=== PATIENT | female | born 1995 | race Caucasian/White ===

== ENCOUNTER 2018-08-01 11:54 | Emergency (ER) | payer OTHER, MEDICAID, SELFPAY ==
[2018-08-01 12:11] VITALS: BP 112/73; PULSE 79; RESP 18; TEMP 36.4; O2SAT 96; BMI 39.6
[2018-08-01] MEDS: ONDANSETRON 4 MG ODT PO (12:31)
[2018-08-01 15:48] VITALS: BP 112/74; PULSE 73; TEMP 36.5; O2SAT 97
--- NOTE | 2018-08-01 16:08 | ED.EAR ---
HPI - Ear Problem <GA Guaman Last Filed: 08/01/18 22:16> General Chief complaint: Ear Stated complaint: ear ache Time Seen by Provider: 08/01/18 15:46 Source: patient Mode of arrival: ambulatory Limitations: no limitations History of Present Illness HPI Narrative: This 23-year-old female complains of right earache and is worried that this could rupture as it feels like her left eardrum did in the past prior to a rupturing. She states that about a week ago, she went camping and afterwards she had some congestion, drainage, and scratchy throat like her usual allergy symptoms. She has gradually developed sore throat (better now), left, then right and ear congestion respectively. She states that the ear pain radiates into her jaw and the ear feels plugged. She states that she has felt warm the last couple of days but has not taken her temperature. She states that she has had some cough, but no wheeze or dyspnea or exacerbation of her asthma. She denies any chest pain or other new complaints on systems review. No other known exposures Related Data Home Medications Medication Instructions Recorded Confirmed fexofenadine 180 mg PO QDAYP PRN #0 06/19/17 Previous Rx's Medication Instructions Recorded albuterol sulfate 1.25 mg INH SEE INSTRUCTIONS PRN 04/17/17 #1 box amoxicillin 500 mg PO Q8H #30 cap 09/20/17 clindamycin HCl 300 mg PO Q6H 10 Days #0 cap 09/23/17 ondansetron [Zofran ODT] 4 mg SUBLINGUAL Q6HP PRN #5 odt 09/23/17 tramadol 1 - 2 tab PO Q4HP PRN #12 tab 09/23/17 albuterol sulfate HFA 90 1 inhalation INHALATION Q4-6H PRN 04/22/18 mcg/actuation aerosol inhaler #1 inhalation amoxicillin 500 mg PO Q8H #30 cap 08/01/18 Allergies Allergy/AdvReac Type Severity Reaction Status Date / Time No Known Drug Allergies Allergy Unknown Verified 08/01/18 12:16 Review of Systems <GA Guaman Filed: 08/01/18 22:16> Review of Systems All systems reviewed & are unremarkable except as noted in HPI and below PFSH <GA Guaman Filed: 08/01/18 22:16> Comment: quit 08/06 Exam <Adwoa Wilson PA-C - Last Filed: 08/01/18 22:16> Narrative Exam Narrative: GENERAL APPEARANCE: Patient sitting comfortably, in no distress. HEAD: No sinus TTP. EYES: PERRL, EOMI. EARS: Normal auditory canals, TMS intact, mild injection on the left. Right is erythematous and bulging. ORAL CAVITY: Normal oropharynx. THROAT: Moderately enlarged, erythematous tonsils without exudate NECK/THYROID: Neck supple, full range of motion, anterior cervical lymphadenopathy. LUNGS: Clear to auscultation bilaterally, no cough on exam. HEART: RRR without murmur, nl S1, S2, no S3 or S4. EXTREMITIES: No edema or cyanosis Initial Vital Signs Initial Vital Signs: Vital Signs Temperature 97.6 F 08/01/18 12:11 Pulse Rate 79 08/01/18 12:11 Respiratory Rate 18 08/01/18 12:11 Blood Pressure 112/73 08/01/18 12:11 Pulse Oximetry 96 08/01/18 12:11 <Cecily Fournier DO - Last Filed: 08/02/18 08:14> Initial Vital Signs Initial Vital Signs: Vital Signs Temperature 97.6 F 08/01/18 12:11 Pulse Rate 79 08/01/18 12:11 Respiratory Rate 18 08/01/18 12:11 Blood Pressure 112/73 08/01/18 12:11 Pulse Oximetry 96 08/01/18 12:11 Course <Adwoa Wilsno PA-C - Last Filed: 08/01/18 22:16> Orders Ordered: Discontinued Medications Ondansetron HCl (Zofran Odt) 4 mg PO NOW ONE Stop: 08/01/18 12:21 Last Admin: 08/01/18 12:31 Dose: 4 mg Vital Signs - 8 hr 08/01/18 15:48 Temperature 97.7 F Pulse Rate 73 Blood Pressure [Left Arm] 112/74 Pulse Oximetry 97 <DO Popeye Roman Last Filed: 08/02/18 08:14> Orders Ordered: Discontinued Medications Ondansetron HCl (Zofran Odt) 4 mg PO NOW ONE Stop: 08/01/18 12:21 Last Admin: 08/01/18 12:31 Dose: 4 mg Vital Signs - 8 hr 08/01/18 15:48 Temperature 97.7 F Pulse Rate 73 Blood Pressure [Left Arm] 112/74 Pulse Oximetry 97 Discharge Plan Departure Patient Disposition: Home Clinical Impression: Otitis media Discharge Date/Time: 08/01/18 16:25 Interventions: ED Discharge Assessment Last Done: 08/01/18 16:21 Instructions: DI for Otitis Media (Middle Ear Infection)-Child Activity Restrictions/Additional Instructions: please return if you have any acutely worsening symptoms. Please see your PCP if your symptoms are not improving after you have been on the antibiotics for a few days. Please try taking pseudoephedrine (get the 1 from the pharmacist when you picker feeder your prescription) to help with your ear pressure and congestion. Also take [id number] ibuprofen or Aleve to help with pain. Continue your usual allergy and asthma medicines as well. Prescriptions: New amoxicillin 500 mg capsule 500 mg PO Q8H Qty: 30 RF: 0 No Action albuterol sulfate 1.25 MG/3 ML solution for nebulization 1.25 mg INH SEE INSTRUCTIONS PRNQty: 1 RF: 4 fexofenadine 180 MG tablet 180 mg PO QDAYP PRNQty: 0 RF: 0 amoxicillin 500 MG capsule 500 mg PO Q8H Qty: 30 RF: 0 clindamycin HCl 300 MG capsule 300 mg PO Q6H 10 Days Qty: 0 RF: 0 tramadol 50 MG tablet 1 - 2 tab PO Q4HP PRNQty: 12 RF: 0 ondansetron [Zofran ODT] 4 MG tablet,disintegrating 4 mg Sublingual Q6HP PRNQty: 5 RF: 0 albuterol sulfate [Proventil HFA] 90 mcg/actuation HFA aerosol inhaler 1 inhalation INHALATION Q4-6H PRN (Reason: shortness of breath or wheezing) Qty: 1 RF: 1 Referrals: Julián Rosenthal MD [Non-Staff] - <Cecily Fournier DO - Last Filed: 08/02/18 08:14> Cosign ED Attending Kenroyature Attestation: I was immediately available in the department for consultation. Documentation has been reviewed. I agree with assessment and plan.
== END 2018-08-01 16:25 | disposition home or self-care (01) ==
PROVIDERS: Emergency Provider Internal Medicine
DX: H66.90 Otitis media, unspecified, unspecified ear (principal)
CPT/HCPCS: 99282; 99283

== ENCOUNTER 2019-01-13 13:52 | Emergency (ER) | payer OTHER, MEDICAID, SELFPAY ==
[2019-01-13 13:55] VITALS: BP 119/78; PULSE 82; RESP 20; TEMP 36.2; O2SAT 96
[2019-01-13 14:30] LABS: Influenza A and B by PCR Rapid Negative (Negative)
--- NOTE | 2019-01-13 15:56 | PC.NURSE ---
Patient reports use of nebulizer at home with albuterol with minimal relief. COugh for three days. wet but can't get anything out and no relief with mucinex denies fever or chills.
--- NOTE | 2019-01-13 16:07 | ED.URI ---
HPI - URI/Sore Throat <Adwoa Wilson PA-C - Last Filed: 01/13/19 21:41> General Chief Complaint: Upper Respiratory Symptoms Stated Complaint: cough Time Seen by Provider: 01/13/19 15:01 Source: patient Mode of arrival: ambulatory Limitations: no limitations History of Present Illness HPI Narrative: This 23-year-old female with history of asthma comes to ED due to the increased wheeze and dyspnea for the last 3 days in the setting of new wet cough. She feels like her chest is congested but unable to produce sputum most of the time. She denies chest pain. She denies any new pain or swelling in her legs. She denies fever, chills, sweats. She denies any recent travel or known exposures. She denies any sinus pain, earache, or sore throat. She is a smoker. She states that she has tried her inhalers frequently and various types of nebulizers at home without improvement ( she states that she is unsure which nebulizer solution she is using as she got some from her mom since she does not need it frequently). Related Data Home Medications Medication Instructions Recorded Confirmed fexofenadine 180 mg PO QDAYP PRN #0 06/19/17 Previous Rx's Medication Instructions Recorded albuterol sulfate 1.25 mg INH SEE INSTRUCTIONS PRN 04/17/17 #1 box ondansetron [Zofran ODT] 4 mg SUBLINGUAL Q6HP PRN #5 odt 09/23/17 tramadol 1 - 2 tab PO Q4HP PRN #12 tab 09/23/17 albuterol sulfate HFA 90 1 inhalation INHALATION Q4-6H PRN 04/22/18 mcg/actuation aerosol inhaler #1 inhalation albuterol sulfate 2.5 mg INHALATION Q3-4H PRN #180 ml 01/13/19 ipratropium-albuterol 3 ml INHALATION BID #90 ml 01/13/19 prednisone 40 mg PO DAILY #10 tab 01/13/19 Allergies Allergy/AdvReac Type Severity Reaction Status Date / Time No Known Drug Allergies Allergy Unknown Verified 08/01/18 12:16 Review of Systems <Adwoa Wilson PA-C - Last Filed: 01/13/19 21:41> Review of Systems ROS Unobtainable: All systems reviewed & are unremarkable except as noted in HPI and below PFSH <Adwoa Wilson PA-C - Last Filed: 01/13/19 21:41> Medical History MILD PERSISTENT ASTHMA, UNCOMPLICATED (Chronic) Anemia (Chronic) Seasonal allergies (Chronic) Social History Smoking Status: Former smoker Social History Smoking Status: Current every day smoker Exam <Adwoa Wilson PA-C - Last Filed: 01/13/19 21:41> Narrative Exam Narrative: GENERAL APPEARANCE: Patient sitting comfortably, in no distress. HEAD: No sinus TTP. EYES: PERRL, EOMI. EARS: Normal auditory canals, TMS intact with normal light reflexes. ORAL CAVITY: Normal oropharynx. THROAT: Erythematous with large tonsils, no exudate NECK/THYROID: Neck supple, full range of motion, no cervical lymphadenopathy. LUNGS: generalized coarse breath sounds with some expiratory wheeze, speaks easily in complete sentences, intermittent cough on exam. HEART: RRR without murmur, nl S1, S2, no S3 or S4. EXTREMITIES: No edema or calf tenderness Initial Vital Signs Initial Vital Signs: Vital Signs Temperature 97.1 F L 01/13/19 13:55 Pulse Rate 82 01/13/19 13:55 Respiratory Rate 20 01/13/19 13:55 Blood Pressure 119/78 01/13/19 13:55 Pulse Oximetry 96 01/13/19 13:55 <Cecily Fournier DO - Last Filed: 01/16/19 09:01> Initial Vital Signs Initial Vital Signs: Vital Signs Temperature 97.1 F L 01/13/19 13:55 Pulse Rate 82 01/13/19 13:55 Respiratory Rate 20 01/13/19 13:55 Blood Pressure 119/78 01/13/19 13:55 Pulse Oximetry 96 01/13/19 13:55 Course <Adwoa Wilson PA-C - Last Filed: 01/13/19 21:41> Orders Ordered: ED Orders 01/13/19 13:58 Influenza A and B by PCR Rapid Stat Vital Signs - 8 hr 01/13/19 13:55 01/13/19 16:29 Temperature 97.1 F L Pulse Rate 82 Respiratory Rate 20 20 Blood Pressure 119/78 Pulse Oximetry 96 97 <Cecily Fournier DO - Last Filed: 01/16/19 09:01> Orders Ordered: ED Orders 01/13/19 13:58 Influenza A and B by PCR Rapid Stat Vital Signs - 8 hr 01/13/19 13:55 01/13/19 16:29 Temperature 97.1 F L Pulse Rate 82 Respiratory Rate 20 20 Blood Pressure 119/78 Pulse Oximetry 96 97 MDM - URI/Sore Throat <Adwoa Wilson PA-C - Last Filed: 01/13/19 21:41> Lab Data Lab Results 01/13/19 Range/Units 13:58 Influenza A & B (PCR) Negative (Negative) <Cecily Fournier DO - Last Filed: 01/16/19 09:01> Lab Data Lab Results 01/13/19 Range/Units 13:58 Influenza A & B (PCR) Negative (Negative) Discharge Plan Departure Patient Disposition: Home Clinical Impression: Bronchitis Asthma exacerbation Qualifiers: Asthma severity: moderate Asthma persistence: persistent Qualified Code(s): J45.41 - Moderate persistent asthma with (acute) exacerbation Discharge Date/Time: 01/13/19 16:31 Interventions: ED Discharge Assessment Last Done: 01/13/19 16:29 Instructions: DI for Asthma -- Adult, DI for Acute Bronchitis Activity Restrictions/Additional Instructions: I think that your asthma flare-up is caused by a chest cold ( bronchitis). please use the new nebulizer solution ipratropium / albuterol when you get home. Use that twice daily as it is longer acting. Follow that with albuterol twice daily and use the plain albuterol every few hours as needed in between to help with your wheeze and cough. In addition, please start the prednisone today, 2 tabs daily to help with your asthma. You should return as we talked about if you have acutely worsening symptoms, otherwise you should follow-up with your PCP in a few days (no later than Sunday) for recheck to make sure you are getting better and to determine whether you need to continue the steroids or can discontinue them on Sunday. Prescriptions: New ipratropium-albuterol 0.5 mg-3 mg(2.5 mg base)/3 mL solution for nebulization 3 ml INHALATION BID Qty: 90 RF: 0 albuterol sulfate 2.5 mg /3 mL (0.083 %) solution for nebulization 2.5 mg INHALATION Q3-4H PRN (Reason: asthma) Qty: 180 RF: 0 prednisone 20 mg tablet 40 mg PO DAILY Qty: 10 RF: 0 No Action albuterol sulfate 1.25 MG/3 ML solution for nebulization 1.25 mg INH SEE INSTRUCTIONS PRNQty: 1 RF: 4 fexofenadine 180 MG tablet 180 mg PO QDAYP PRNQty: 0 RF: 0 tramadol 50 MG tablet 1 - 2 tab PO Q4HP PRNQty: 12 RF: 0 ondansetron [Zofran ODT] 4 MG tablet,disintegrating 4 mg Sublingual Q6HP PRNQty: 5 RF: 0 albuterol sulfate [Proventil HFA] 90 mcg/actuation HFA aerosol inhaler 1 inhalation INHALATION Q4-6H PRN (Reason: shortness of breath or wheezing) Qty: 1 RF: 1 Referrals: Julián Rosenthal MD [Non-Staff] - <Cecily Fournier DO - Last Filed: 01/16/19 09:01> Cosign ED Attending Cosignature Attestation: I was immediately available in the department for consultation. Documentation has been reviewed. I agree with assessment and plan.
[2019-01-13 16:29] VITALS: RESP 20; O2SAT 97
== END 2019-01-13 16:31 | disposition home or self-care (01) ==
PROVIDERS: Emergency Provider Internal Medicine
DX: J40 Bronchitis, not specified as acute or chronic (principal); J45.41 Moderate persistent asthma with (acute) exacerbation
CPT/HCPCS: 87400; 99282; 99283

== ENCOUNTER 2022-07-30 11:31 | Emergency (ER) | payer OTHER, MEDICAID, SELFPAY ==
[2022-07-30 11:47] VITALS: BP 131/86; PULSE 77; RESP 18; TEMP 36.2; O2SAT 96; BMI 42.5
--- NOTE | 2022-07-30 13:09 | DI.RAD.S_ITS ---
PROCEDURE: XR LUMBAR SPINE 2-3V INDICATIONS: lumbar sacral pain , h/o sciatica TECHNIQUE: 3 views of the lumbar spine were acquired. COMPARISON: [facility], , -SPINE 2-3 VIEWS, 03/13/2017, 14:42. FINDINGS: Bones: 5 [id number] vertebrae are present. There is normal bony alignment. No vertebral body compression fractures. No suspicious bony lesions. Soft tissues: Overlying bowel gas pattern is normal. No suspicious soft tissue calcifications. IMPRESSION: No acute osseous abnormality. If the symptoms persist, consider cross sectional imaging such as MRI or CT for further assessment. Dictated by: Manohar De Jesus M.D. on 07/30/2022 at 12:46 Approved by: Manohar De Jesus M.D. on 07/30/2022 at 12:48
--- NOTE | 2022-07-30 13:09 | DI.RAD.S_ITS ---
PROCEDURE: XR SACROILIAC JOINT MIN 3V INDICATIONS: h/o sciatica now lumbar sacral pain TECHNIQUE: 3 views of the sacroiliac joints were acquired. COMPARISON: None. FINDINGS: Bones: No bony erosions or ankylosis. No suspicious bony lesions. No fractures. Soft tissues: Overlying bowel gas pattern is normal. No suspicious soft tissue densities. IMPRESSION: No signs of sacroiliitis. No acute osseous abnormality. If the symptoms persist, consider cross sectional imaging such as MRI or CT for further assessment. Dictated by: Manohar De Jesus M.D. on 07/30/2022 at 12:48 Approved by: Manohar De Jesus M.D. on 07/30/2022 at 12:49
--- NOTE | 2022-07-30 13:12 | ED.BACK ---
HPI - Back Pain/Injury <Yamilet Ivory PA-C - Last Filed: 07/30/22 20:01> General Chief Complaint: Back Pain/Injury Stated Complaint: persistant cough threw out lower back, Severe back Time Seen by Provider: 07/30/22 11:58 Source: patient History of Present Illness HPI Narrative: the patient is a very pleasant 27 yo WF with history of asthma, controlled with inhaler, reported he coughed yesterday and sneezed and experienced sudden pain across her lower back Note that patient does give a history of persistent low back pain, associated with the of her child 7 years ago, on and off. She described the pain as excruciating, ranging from 7-10 out of 10 last PM. Currently pain somewhat subsided, and associated with change in position the specialist stating transferring triggers pain back to level 7 to 8/10. She denies any bowel, the urinary issues. She denies hematuria, blood in her stool. She denies tingling numbness in the lower extremities Related Data Home Medications Medication Instructions Recorded Confirmed fexofenadine 180 mg tablet 180 mg PO QDAYP PRN ##0 06/19/17 Previous Rx's Medication Instructions Recorded albuterol sulfate 1.25 mg/3 mL 1.25 mg (3 mL) INH SEE 04/17/17 solution for nebulization INSTRUCTIONS PRN ##1 ondansetron 4 mg disintegrating 4 mg sublingual Q6HP PRN ##5 09/23/17 tablet (Zofran ODT) tramadol 50 mg tablet 1 - 2 tab PO Q4HP PRN #12 tabs 09/23/17 albuterol sulfate 90 mcg/actuation 1 inhalation inhalation Q4-6H PRN 04/22/18 aerosol inhaler (Proventil HFA) shortness of breath or wheezing #1 inh albuterol sulfate 2.5 mg/3 mL 2.5 mg (3 mL) inhalation Q3-4H PRN 01/13/19 (0.083 %) solution for nebulization asthma #180 mL ipratropium 0.5 mg-albuterol 3 mg 3 ml inhalation BID asthma #90 mL 01/13/19 (2.5 mg base)/3 mL nebulization soln prednisone 20 mg tablet 40 mg PO DAILY asthma exacerbation 01/13/19 #10 tabs cyclobenzaprine 10 mg tablet 10 mg PO TID muscle spasm #15 tabs 07/30/22 ibuprofen 600 mg tablet 600 mg PO TID #15 tabs 07/30/22 Allergies Allergy/AdvReac Type Severity Reaction Status Date / Time No Known Drug Allergies Allergy Unknown Verified 07/30/22 11:47 Review of Systems <Yamilet Ivory PA-C - Last Filed: 07/30/22 20:01> Review of Systems Narrative: GENERAL: Denies chills, admits to occasional fatigue, malaise, fever, sweats. HEENT: Denies sinus pain, ear pain, sore throat, difficulty swallowing, dizziness. RESPIRATORY: Denies dyspnea, cough, wheezing, hemoptysis, sputum. CARDIOVASCULAR: Denies chest pain, palpitations, orthopnea, edema, GASTROINTESTINAL: Denies nausea, vomiting, abdominal pain, diarrhea, constipation, melena. : Denies dysuria, frequency, incontinence, hematuria, urinary retention. MUSCULOSKELETAL: denies weakness, joint pain, admits to low back pain SKIN: Denies rash, skin lesions, or other NEUROLOGIC: Denies weakness, headache, numbness, change in speech, confusion, seizures, incoordination. PSYCHIATRIC: No concerning psychosocial issues. 12 point review of systems is negative except for those stated above Patient History <Yamilet Ivory PA-C - Last Filed: 07/30/22 20:01> Medical History Anemia MILD PERSISTENT ASTHMA, UNCOMPLICATED Seasonal allergies Social History Smoking Status: Current every day smoker Smoking Status: Current every day smoker tobacco type: cigarettes alcohol intake frequency: 0-2 drinks per day Alcohol type: hard liquor Substance Use Type: marijuana Exam <Yamilet Ivory PA-C - Last Filed: 07/30/22 20:01> Narrative Exam Narrative: GENERAL: This is a well-nourished, well-developed patient, in mild distress due to back pain . HEAD: Atraumatic. Normocephalic. No temporal or scalp tenderness. EYES: Pupils equal round and reactive. Extraocular motions intact. No scleral icterus. No injection or drainage. ENT: Nose without bleeding, purulent drainage or septal hematoma. Throat without erythema, tonsillar hypertrophy or exudate. Uvula midline. Airway patent. NECK: Trachea midline. No JVD or lymphadenopathy. Supple, nontender, no meningeal signs. CARDIOVASCULAR: Regular rate and rhythm without murmurs, gallops, or rubs. RESPIRATORY: Clear to auscultation. Breath sounds equal bilaterally. No wheezes, rales, or rhonchi. GASTROINTESTINAL: Abdomen soft, non-tender, nondistended. No hepato-splenomegaly, or palpable masses. No guarding. EXTREMITIES: No clubbing, cyanosis, or edema. No joint tenderness, effusion, or edema noted. BACK: sacro iliac pain at L4 , mid line, is tender, T spine is not tender without deformity or crepitance. No flank tenderness. NEURO: AOx3. LE reflexes are normoactive SKIN: No rash or erythema of visible areas Initial Vital Signs Initial Vital Signs: Vital Signs Temperature 97.2 F L 07/30/22 11:47 Pulse Rate 77 07/30/22 11:47 Respiratory Rate 18 07/30/22 11:47 Blood Pressure 131/86 07/30/22 11:47 Pulse Oximetry 96 07/30/22 11:47 Oxygen Delivery Method 07/30/22 11:47 <Roma Palumbo DO - Last Filed: 08/01/22 07:54> Initial Vital Signs Initial Vital Signs: Vital Signs Temperature 97.2 F L 07/30/22 11:47 Pulse Rate 77 07/30/22 11:47 Respiratory Rate 18 07/30/22 11:47 Blood Pressure 131/86 07/30/22 11:47 Pulse Oximetry 96 07/30/22 11:47 Oxygen Delivery Method 07/30/22 11:47 Course <Yamilet Ivory PA-C - Last Filed: 07/30/22 20:01> Course Course Narrative: patient was observed in ED . Exam revealed possible sacro iliac strain Xrays LS spine reviewed and unremarkable . Patient felt better and stable for discharge. Orders Ordered: Discontinued Medications Ketorolac Tromethamine (Ketorolac 30 Mg/Ml Vial) 1 mg IM NOW ONE Stop: 07/30/22 13:14 Last Admin: 07/30/22 14:50 Dose: Not Given Documented By: Ketorolac Tromethamine (Ketorolac 30 Mg/Ml Vial) 30 mg IM NOW ONE Stop: 07/30/22 14:47 Last Admin: 07/30/22 14:47 Dose: 30 mg Documented By: QING Vital Signs Vital signs: Vital Signs - 8 hr 07/30/22 11:47 Temperature 97.2 F L Pulse Rate 77 Respiratory Rate 18 Blood Pressure 131/86 Pulse Oximetry 96 Oxygen Delivery Method Room Air <Roma Palumbo DO - Last Filed: 08/01/22 07:54> Orders Ordered: Discontinued Medications Ketorolac Tromethamine (Ketorolac 30 Mg/Ml Vial) 1 mg IM NOW ONE Stop: 07/30/22 13:14 Last Admin: 07/30/22 14:50 Dose: Not Given Documented By: QING Ketorolac Tromethamine (Ketorolac 30 Mg/Ml Vial) 30 mg IM NOW ONE Stop: 07/30/22 14:47 Last Admin: 07/30/22 14:47 Dose: 30 mg Documented By: QING Vital Signs Vital signs: Vital Signs - 8 hr 07/30/22 11:47 Temperature 97.2 F L Pulse Rate 77 Respiratory Rate 18 Blood Pressure 131/86 Pulse Oximetry 96 Oxygen Delivery Method Room Air MDM - Back Pain/Injury <Yamilet Ivory PA-C - Last Filed: 07/30/22 20:01> Imaging Data ls spine xray : Radiologist's Impression: ? IMPRESSION:? No signs of sacroiliitis. No acute osseous abnormality. If the symptoms persist, consider cross sectional imaging such as MRI or CT for further assessment. ? ? [facility] Narrative Medical decision making narrative: 27 yo female with the ongoing complaints of chronic back pain, asthma, developed acute sacroiliac sprain and strain. She was examined in the emergency department, found to be stable, imaging showed no acute findings. Discussed with patient diagnosis treatment, advised conservative treatment with NSAIDs, muscle relaxant, rest. Patient expressed understanding, and willingness to comply. Discharge Plan Departure Patient Disposition: Home Clinical Impression: Strain of lumbar region, Acute back pain Instructions: DI for Back Strain or Sprain Activity Restrictions/Additional Instructions: *You have been diagnosed with sacro iliac sprain and back pain *What to do: *Please continue to take your regular medications as directed. New medication prescriptions sent to your pharmacy: ibuprofen adn Flexeril *Please follow up with your primary care provider in 2-3 days, call for an appointment. Let them know you were seen in the Emergency Department and that we ask that you be seen in follow up. We will electronically transmit a record of today's note if your PCP is in our system Prescriptions: New ibuprofen 600 mg tablet 600 mg PO TID Qty: 15 0RF cyclobenzaprine 10 mg tablet 10 mg PO TID Qty: 15 0RF No Action albuterol sulfate 1.25 MG/3 ML solution for nebulization 1.25 mg INH SEE INSTRUCTIONS PRNQty: 1 4RF fexofenadine 180 MG tablet 180 mg PO QDAYP PRNQty: 0 tramadol 50 MG tablet 1 - 2 tab PO Q4HP PRNQty: 12 0RF ondansetron [Zofran ODT] 4 MG tablet,disintegrating 4 mg Sublingual Q6HP PRNQty: 5 0RF albuterol sulfate [Proventil HFA] 90 mcg/actuation HFA aerosol inhaler 1 inhalation INHALATION Q4-6H PRN (Reason: shortness of breath or wheezing) Qty: 1 1RF Rx Instructions: Please schedule annual exam ipratropium-albuterol 0.5 mg-3 mg(2.5 mg base)/3 mL solution for nebulization 3 ml INHALATION BID Qty: 90 0RF albuterol sulfate 2.5 mg /3 mL (0.083 %) solution for nebulization 2.5 mg INHALATION Q3-4H PRN (Reason: asthma) Qty: 180 0RF prednisone 20 mg tablet 40 mg PO DAILY Qty: 10 0RF Referrals: Miscellaneous,Doctor, MD [Primary Care Provider] - 3-5 days Visit Report Forms: Patient Portal/API <Roma Palumbo DO - Last Filed: 08/01/22 07:54> Cosign ED Attending Devora Attestation: I was immediately available in the department for consultation. Documentation has been reviewed. Two charts are noted for this patient from the same encounter both have been signed.
[2022-07-30] MEDS: KETOROLAC 30 MG/ML VIAL IM (14:47)
--- NOTE | 2022-07-30 14:48 | PC.NURSE ---
provider enter error in amount of medication. PT given 30mg IM ketorolac
--- NOTE | 2022-07-30 16:24 | ED_ITS ---
HPI - Back Pain/Injury <Yamilet Ivory PA-C - Last Filed: 07/30/22 16:43> General Chief Complaint: Back Pain/Injury Stated Complaint: persistant cough threw out lower back, Severe back Time Seen by Provider: 07/30/22 11:58 Source: patient History of Present Illness HPI Narrative: the patient is a very pleasant 27 yo WF w h/o asthma, which has been managed well on inhalers, does have a history of LBP which she acquired about 7 ys ago when she was with her child She states last PM she coughed and experienced acute LBP which she described nothing like I had before, stabbing and staying localized around her back She denies strenuous activity, which could attribute to this pain. she denies any fever chills urinary symptoms She took some [id number] anti-inflammatory which did not help. Patient denies tingling numbness in her lower extremities. Related Data Home Medications Medication Instructions Recorded Confirmed fexofenadine 180 mg tablet 180 mg PO QDAYP PRN ##0 06/19/17 Previous Rx's Medication Instructions Recorded albuterol sulfate 1.25 mg/3 mL 1.25 mg (3 mL) INH SEE 04/17/17 solution for nebulization INSTRUCTIONS PRN ##1 ondansetron 4 mg disintegrating 4 mg sublingual Q6HP PRN ##5 09/23/17 tablet (Zofran ODT) tramadol 50 mg tablet 1 - 2 tab PO Q4HP PRN #12 tabs 09/23/17 albuterol sulfate 90 mcg/actuation 1 inhalation inhalation Q4-6H PRN 04/22/18 aerosol inhaler (Proventil HFA) shortness of breath or wheezing #1 inh albuterol sulfate 2.5 mg/3 mL 2.5 mg (3 mL) inhalation Q3-4H PRN 01/13/19 (0.083 %) solution for nebulization asthma #180 mL ipratropium 0.5 mg-albuterol 3 mg 3 ml inhalation BID asthma #90 mL 01/13/19 (2.5 mg base)/3 mL nebulization soln prednisone 20 mg tablet 40 mg PO DAILY asthma exacerbation 01/13/19 #10 tabs cyclobenzaprine 10 mg tablet 10 mg PO TID muscle spasm #15 tabs 07/30/22 ibuprofen 600 mg tablet 600 mg PO TID #15 tabs 07/30/22 Allergies Allergy/AdvReac Type Severity Reaction Status Date / Time No Known Drug Allergies Allergy Unknown Verified 07/30/22 11:47 Review of Systems <Yamilet Iovry PA-C - Last Filed: 07/30/22 16:43> Review of Systems Narrative: GENERAL: Denies chills, admits to fatigue, no malaise, fever, sweats. HEENT: Denies sinus pain, ear pain, sore throat, difficulty swallowing, dizziness. RESPIRATORY: Denies dyspnea, cough, wheezing, hemoptysis, sputum. CARDIOVASCULAR: Denies chest pain, palpitations, orthopnea, edema, GASTROINTESTINAL: Denies nausea, vomiting, abdominal pain, diarrhea, constipation, melena. : Denies dysuria, frequency, incontinence, hematuria, urinary retention. MUSCULOSKELETAL: denies weakness, in LE but does have LBP as per HPI no other joint pain, or bony pain SKIN: Denies rash, skin lesions, or other NEUROLOGIC: Denies weakness, headache, numbness, change in speech, confusion, seizures, balance problems . PSYCHIATRIC: No concerning psychosocial issues. Admits to stress at home. Patient History <Yamilet Ivory PA-C - Last Filed: 07/30/22 16:43> Medical History Anemia MILD PERSISTENT ASTHMA, UNCOMPLICATED Seasonal allergies Social History Smoking Status: Current every day smoker Smoking Status: Current every day smoker tobacco type: cigarettes alcohol intake frequency: 0-2 drinks per day Alcohol type: hard liquor Substance Use Type: marijuana Exam <Yamilet Ivory PA-C - Last Filed: 07/30/22 16:43> Narrative Exam Narrative: GENERAL: This is a well-nourished, well-developed patient, in mild distress. HEAD: Atraumatic. Normocephalic. No temporal or scalp tenderness. EYES: Pupils equal round and reactive. Extraocular motions intact. No scleral icterus. No injection or drainage. ENT: Nose without bleeding, purulent drainage or septal hematoma. Throat without erythema, tonsillar hypertrophy or exudate. Uvula midline. Airway patent. NECK: Trachea midline. No JVD or lymphadenopathy. Supple, nontender, no meningeal signs. CARDIOVASCULAR: Regular rate and rhythm without murmurs, gallops, or rubs. RESPIRATORY: Clear to auscultation. Breath sounds equal bilaterally. No wheezes, rales, or rhonchi. GASTROINTESTINAL: Abdomen soft, non-tender, nondistended. No hepato- splenomegaly, or palpable masses. No guarding. EXTREMITIES: No clubbing, cyanosis, or edema. No joint tenderness, effusion, or edema noted. BACK: T spine is Nontender without deformity or crepitance. No flank tenderness. LS tenderness at sacroiliac joints NEURO: AOx3. SKIN: No rash or erythema of visible areas Initial Vital Signs Initial Vital Signs: Vital Signs Temperature 97.2 F L 07/30/22 11:47 Pulse Rate 77 07/30/22 11:47 Respiratory Rate 18 07/30/22 11:47 Blood Pressure 131/86 07/30/22 11:47 Pulse Oximetry 96 07/30/22 11:47 Oxygen Delivery Method 07/30/22 11:47 <Roma Palumbo DO - Last Filed: 08/01/22 07:54> Initial Vital Signs Initial Vital Signs: Vital Signs Temperature 97.2 F L 07/30/22 11:47 Pulse Rate 77 07/30/22 11:47 Respiratory Rate 18 07/30/22 11:47 Blood Pressure 131/86 07/30/22 11:47 Pulse Oximetry 96 07/30/22 11:47 Oxygen Delivery Method 07/30/22 11:47 Course <Yamilet Ivory PA-C - Last Filed: 07/30/22 16:43> Course Course Narrative: patient was observed in ED Xrays were taken no acute findings Patient felt better and was ready to be dc in stable condition Orders Ordered: Discontinued Medications Ketorolac Tromethamine (Ketorolac 30 Mg/Ml Vial) 1 mg IM NOW ONE Stop: 07/30/22 13:14 Last Admin: 07/30/22 14:50 Dose: Not Given Documented By: QING Ketorolac Tromethamine (Ketorolac 30 Mg/Ml Vial) 30 mg IM NOW ONE Stop: 07/30/22 14:47 Last Admin: 07/30/22 14:47 Dose: 30 mg Documented By: QING Vital Signs Vital signs: Vital Signs - 8 hr 07/30/22 11:47 Temperature 97.2 F L Pulse Rate 77 Respiratory Rate 18 Blood Pressure 131/86 Pulse Oximetry 96 Oxygen Delivery Method Room Air <Roma Palumbo DO - Last Filed: 08/01/22 07:54> Orders Ordered: Discontinued Medications Ketorolac Tromethamine (Ketorolac 30 Mg/Ml Vial) 1 mg IM NOW ONE Stop: 07/30/22 13:14 Last Admin: 07/30/22 14:50 Dose: Not Given Documented By: QING Ketorolac Tromethamine (Ketorolac 30 Mg/Ml Vial) 30 mg IM NOW ONE Stop: 07/30/22 14:47 Last Admin: 07/30/22 14:47 Dose: 30 mg Documented By: Vital Signs Vital signs: Vital Signs - 8 hr 07/30/22 11:47 Temperature 97.2 F L Pulse Rate 77 Respiratory Rate 18 Blood Pressure 131/86 Pulse Oximetry 96 Oxygen Delivery Method Room Air MDM - Back Pain/Injury <Yamilet Ivory PA-C - Last Filed: 07/30/22 16:43> Differential Diagnosis Differential diagnosis: Likely strain of lumbar region Imaging Data LS spine : Radiologist's Impression: ? IMPRESSION:? No signs of sacroiliitis. No acute osseous abnormality. If the symptoms persist, consider cross sectional imaging such as MRI or CT for further assessment. ? [facility] Narrative Medical decision making narrative: Ms Sauceda is diagnosed with acute LS sprain. She avised to be treated conservatively with NSAIDs, muscle relaxant, rest. She may apply some lidocaine patches to the affected area. Patient understands and agrees with diagnosis and plan. Return precautions given and questions answered to their apparent satisfaction Discharge Plan Departure Patient Disposition: Home Clinical Impression: Strain of lumbar region, Acute back pain Instructions: DI for Back Strain or Sprain Activity Restrictions/Additional Instructions: *You have been diagnosed with sacro iliac sprain and back pain *What to do: *Please continue to take your regular medications as directed. New medication prescriptions sent to your pharmacy: ibuprofen adn Flexeril *Please follow up with your primary care provider in 2-3 days, call for an appointment. Let them know you were seen in the Emergency Department and that we ask that you be seen in follow up. We will electronically transmit a record of today's note if your PCP is in our system Prescriptions: New ibuprofen 600 mg tablet 600 mg PO TID Qty: 15 0RF cyclobenzaprine 10 mg tablet 10 mg PO TID Qty: 15 0RF No Action albuterol sulfate 1.25 MG/3 ML solution for nebulization 1.25 mg INH SEE INSTRUCTIONS PRNQty: 1 4RF fexofenadine 180 MG tablet 180 mg PO QDAYP PRNQty: 0 tramadol 50 MG tablet 1 - 2 tab PO Q4HP PRNQty: 12 0RF ondansetron [Zofran ODT] 4 MG tablet,disintegrating 4 mg Sublingual Q6HP PRNQty: 5 0RF albuterol sulfate [Proventil HFA] 90 mcg/actuation HFA aerosol inhaler 1 inhalation INHALATION Q4-6H PRN (Reason: shortness of breath or wheezing) Qty: 1 1RF Rx Instructions: Please schedule annual exam ipratropium-albuterol 0.5 mg-3 mg(2.5 mg base)/3 mL solution for nebulization 3 ml INHALATION BID Qty: 90 0RF albuterol sulfate 2.5 mg /3 mL (0.083 %) solution for nebulization 2.5 mg INHALATION Q3-4H PRN (Reason: asthma) Qty: 180 0RF prednisone 20 mg tablet 40 mg PO DAILY Qty: 10 0RF Referrals: Miscellaneous,Doctor, MD [Primary Care Provider] - 3-5 days Visit Report Forms: Patient Portal/API <Roma Palumbo DO - Last Filed: 08/01/22 07:54> Cosign ED Attending Devora Attestation: I was immediately available in the department for consultation. Documentation has been reviewed. Two charts are noted for this encounter. Both have been signed.
== END 2022-07-30 14:51 | disposition home or self-care (01) ==
PROVIDERS: Emergency Provider Physician Assistant Medical
DX: S39.012A Strain of muscle, fascia and tendon of lower back, initial encounter (principal)
CPT/HCPCS: 72100; 72202; 96372; 99283; J1885

== ENCOUNTER → 2023-08-21 11:16 | Outpatient (CLI) | payer OTHER, MEDICAID, SELFPAY ==
--- NOTE | 2023-08-21 | DI.CT.S_ITS ---
PROCEDURE: CT SINUS SCREEN WO CON INDICATIONS: CHRONIC PANSINUSITIS TECHNIQUE: Noncontrast 3.0 mm axial images acquired from the frontal sinuses to the mid-sella, with coronal and sagittal reformats. For radiation dose reduction, the following was used: automated exposure control, adjustment of mA and/or kV according to patient size. COMPARISON: None. FINDINGS: Image quality: Excellent. Maxillary Sinuses: Right maxillary sinus retention cyst measures 1 x 2 cm. No remodeling Ethmoid Air Cells: No bony remodeling or destruction. Sinuses are clear. Sphenoid Sinuses: No bony remodeling or destruction. Sinuses are clear. Frontal Sinuses: No bony remodeling or destruction. Sinuses are clear. Ostiomeatal Complexes: Ostiomeatal complexes are patent. No Fredy cells. Miscellaneous: Right middle turbinate paradoxical curvature IMPRESSION: Small right maxillary sinus retention cyst. Otherwise unremarkable CT of the paranasal sinuses Approved by: Tae Sánchez M.D. on 08/21/2023 at 12:50
== END ==
PROVIDERS: Referring Provider Otolaryngology; Visit Provider Otolaryngology
DX: J32.4 Chronic pansinusitis (principal); J34.1 Cyst and mucocele of nose and nasal sinus
CPT/HCPCS: 70486

== ENCOUNTER 2024-03-16 17:02 | Inpatient (IN) | payer OTHER, MEDICAID, SELFPAY ==
[2024-03-16] VITALS (58 sets, daily range): BP systolic 116–159; BP diastolic 64–94; PULSE 96–141; RESP 15–30; TEMP 36.5–37.1; O2SAT 91–100; BMI 44.6
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
[2024-03-16] MEDS: SODIUM CHLORIDE 0.9% FLUSH 10 ML IV ×3 (17:30→20:44)
[2024-03-16 17:36] LABS: Add Manual Diff / Slide Review NO; Basophils Absolute Auto 100 /uL (0-100); Basophils Percent Auto 0.4 % (0-2); Eosinophils Absolute Auto 300 /uL (0-450); Eosinophils Percent Auto 1.8 % (2-4); Hematocrit 34.3 % (36-46); Hemoglobin 11.6 g/dL (12.0-16.0); Lymphocytes Absolute Auto 2700 /uL (1100-4500); Lymphocytes Percent Auto 17.5 % (25-40); Mean Corpuscular HGB Conc 33.9 % (30-36); Mean Corpuscular Hemoglobin 31.5 PG (26-34); Monocytes Absolute Auto 700 /uL (0-900); Monocytes Percent Auto 4.3 % (3-14); Neutrophils Absolute Auto 11600 /uL (1500-7000); Platelet Count 272 X10^3/uL (150-400); Red Blood Cell Count 3.69 X10^6/uL (4.0-5.2); Red Cell Distribution Width 13.1 % (11.6-14.8); White Blood Cell Count 15.3 X10^3/uL (4.5-11.0)
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
[2024-03-16 17:39] LABS: INR 0.9 (0.9-1.3); Prothrombin Time 10.6 SECONDS (9.4-12.5)
[2024-03-16] MEDS: HYDROMORPHONE 1 MG INJ IV (17:40)
[2024-03-16] MEDS: SODIUM CHLORIDE 0.9% 1,000 ML 150 ML IV (17:41)
[2024-03-16 17:42] LABS: PTT Partial Thromboplastin Tim 27 SECONDS (25.1-36.5)
[2024-03-16 17:44] LABS: Alanine Aminotransferase 10 IU/L (<35); Albumin 3.8 g/dL (3.5-5.0); Albumin Globulin Ratio 1.4 (1.0-2.8); Alkaline Phosphatase 50 U/L (38-126); Aspartate Aminotransferase 27 IU/L (14-36); BUN Creatinine Ratio 12.5 (6-22); Bilirubin Total 0.3 mg/dL (0.2-1.3); Blood Urea Nitrogen 5 mg/dL (7-17); Calcium 8.7 mg/dL (8.4-10.2); Carbon Dioxide 18 mmol/L (22-32); Chloride 108 mmol/L (98-107); Estimated Glomerular Filt Rate > 60 mL/min (>60); Ethanol (ETOH) < 10 mg/dL; Globulin 2.8 g/dL (1.7-4.1); Glucose 112 mg/dL (70-100); HEMOLYSIS < 15 (0-50); Lipase 33 U/L (23-300); Potassium 4.1 mmol/L (3.4-5.1); Sodium 133 mmol/L (137-145); Total Protein 6.6 g/dL (6.3-8.2)
[2024-03-16 17:53] LABS: Lactate (Lactic Acid) 1.3 mmol/L (0.7-2.1)
[2024-03-16] MEDS: TET,DIPH,PERTUSS(ACELL),VAC/PF 0.5 ML SYRINGE IM (17:55)
[2024-03-16] MEDS: KETAMINE 500 MG/5 ML INJ 100 MG IV (18:20)
[2024-03-16] MEDS: LORazepam 2 MG/ML INJ IV (18:20)
--- NOTE | 2024-03-16 18:20 | PC.NURSE ---
Consent signed for conscious sedation for R-ankle reduction , c-spine cleared @[id number]
--- NOTE | 2024-03-16 18:32 | DI.RAD.S_ITS ---
PROCEDURE: XR ANKLE RT 2V INDICATIONS: post reduc TECHNIQUE: 2 views of the ankle were acquired. COMPARISON: [facility], CR, XR ANKLE RT MIN 3V, 03/16/2024, 17:08. [facility], CR, ANKLE 3 VIEWS LEFT, 05/04/2011, 23:51. FINDINGS: Bones: Interval reduction, with improved alignment. Ankle mortise remains widened. Soft tissues: No tibiotalar joint effusion. Achilles tendon appears normal. IMPRESSION: Interval reduction and casting, with improved alignment. Dictated by: Dereje Bonilla M.D. on 03/16/2024 at 19:04 Approved by: Dereje Bonilla M.D. on 03/16/2024 at 19:06
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
[2024-03-16 19:27] LABS: UR Morphine/Opiate cutoff 300 Positive (Negative); Ur Creatinine Normal (Normal); Ur Specific Gravity Normal (Normal); Urine Amphetamines Negative (Negative); Urine Barbiturates Negative (Negative); Urine Benzodiazepines Negative (Negative); Urine Cocaine Negative (Negative); Urine MDMA Negative (Negative); Urine Methadone Negative (Negative); Urine Methamphetamines Negative (Negative); Urine Oxycodone Negative (Negative); Urine Phencyclidine Negative (Negative); Urine pH Normal (Normal)
[2024-03-16 19:29] LABS: Urine Tetrahydrocannabinol Positive (Negative); Urine Tricyclic Antidepressant Negative (Negative)
[2024-03-16] MEDS: CEFAZOLIN 2 GM/100 ML PREMIX 100 ML IV (19:39)
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
[2024-03-16] MEDS: SODIUM CHLORIDE 0.9% 1,000 ML 125 ML IV (20:45)
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
[2024-03-16] MEDS: HYDROMORPHONE 0.5 MG INJ 1 MG IV (21:52)
[2024-03-16] MEDS: GABAPENTIN 300 MG CAPSULE PO (22:34)
[2024-03-16] MEDS: HYDROCODONE/ACET 5/325 TABLET 2 TAB PO (22:34)
[2024-03-16] MEDS: ALBUTEROL 2.5 MG/3 ML NEB (ADULT) INH (23:13)
[2024-03-17] VITALS (13 sets, daily range): BP systolic 114–144; BP diastolic 67–81; PULSE 74–116; RESP 18–20; TEMP 36.7–37.2; O2SAT 93–98
[2024-03-17] MEDS: HYDROMORPHONE 0.5 MG INJ 1 MG IV ×6 (00:47→13:48)
[2024-03-17] MEDS: CEFAZOLIN 2 GM/100 ML PREMIX 100 ML IV ×3 (02:42→20:45)
[2024-03-17] MEDS: SODIUM CHLORIDE 0.9% 1,000 ML 125 ML IV ×2 (06:29→23:17)
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
[2024-03-17] MEDS: ENOXAPARIN 40 MG/0.4 ML SYRINGE SUBCUT (08:39)
[2024-03-17] MEDS: GABAPENTIN 300 MG CAPSULE PO (08:39)
[2024-03-17] MEDS: HYDROMORPHONE 0.5 MG INJ IV ×4 (10:53→21:39)
--- NOTE | 2024-03-17 11:32 | DI.RAD.S_ITS ---
PROCEDURE: XR CHEST 1V INDICATIONS: R/O pneumo TECHNIQUE: One view of the chest was acquired. COMPARISON: [facility], CT, CT TRAUMA CHEST ABDOMEN PELVIS, 03/16/2024, 17:46. [facility], CT, CT LE RT WO CON, 03/16/2024, 19:06. [facility], CR, XR CHEST 1V, 03/16/2024, 17:08. FINDINGS: Surgical changes and devices: None. Lungs and pleura: Lungs appear clear. No pleural effusions or pneumothorax. Mediastinum: Mediastinal contours appear normal. Heart size is normal. Bones and chest wall: No suspicious bony lesions. Right lateral 6th rib fracture is seen. Overlying soft tissues appear unremarkable. IMPRESSION: No pneumothorax. No hemothorax. Right lateral 6th rib fracture is seen. Dictated by: Richard Saldana M.D. on 03/17/2024 at 12:35 Approved by: Richard Saldana M.D. on 03/17/2024 at 12:39
[2024-03-17] MEDS: ALBUTEROL 2.5 MG/3 ML NEB (ADULT) INH (13:21)
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
[2024-03-17] MEDS: HYDROCODONE/ACET 5/325 TABLET 1 TAB PO ×2 (15:23→19:02)
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
[2024-03-17 19:14] LABS: Add Manual Diff / Slide Review NO; Basophils Absolute Auto 0 /uL (0-100); Basophils Percent Auto 0.5 % (0-2); Eosinophils Absolute Auto 200 /uL (0-450); Eosinophils Percent Auto 1.9 % (2-4); Hematocrit 28.5 % (36-46); Hemoglobin 9.8 g/dL (12.0-16.0); Lymphocytes Absolute Auto 1600 /uL (1100-4500); Lymphocytes Percent Auto 16.2 % (25-40); Mean Corpuscular HGB Conc 34.3 % (30-36); Mean Corpuscular Hemoglobin 31.8 PG (26-34); Mean Corpuscular Volume 92.7 fL (80-100); Monocytes Absolute Auto 600 /uL (0-900); Monocytes Percent Auto 6.3 % (3-14); Neutrophils Absolute Auto 7200 /uL (1500-7000); Neutrophils Percent Auto 75.1 % (50-75); Platelet Count 199 X10^3/uL (150-400); Red Blood Cell Count 3.07 X10^6/uL (4.0-5.2); Red Cell Distribution Width 13.5 % (11.6-14.8); White Blood Cell Count 9.6 X10^3/uL (4.5-11.0)
[2024-03-17 19:27] LABS: BUN Creatinine Ratio 14.9 (6-22); Blood Urea Nitrogen 7 mg/dL (7-17); Calcium 8.2 mg/dL (8.4-10.2); Carbon Dioxide 21 mmol/L (22-32); Chloride 108 mmol/L (98-107); Estimated Glomerular Filt Rate > 60 mL/min (>60); Glucose 101 mg/dL (70-100); HEMOLYSIS < 15 (0-50); Potassium 3.9 mmol/L (3.4-5.1); Sodium 133 mmol/L (137-145)
[2024-03-17] MEDS: SODIUM CHLORIDE 0.9% 1,000 ML 1000 ML IV (19:29)
[2024-03-17] MEDS: ACETAMINOPHEN 325 MG TABLET 650 MG PO (20:44)
[2024-03-17] MEDS: SODIUM CHLORIDE 0.9% FLUSH 10 ML IV (20:47)
[2024-03-17] MEDS: HYDROCODONE/ACET 5/325 TABLET 2 TAB PO (23:17)
[2024-03-18] VITALS (15 sets, daily range): BP systolic 120–154; BP diastolic 60–109; PULSE 24–125; RESP 13–111; TEMP 36.9–37.4; O2SAT 3–99; BMI 44.6
--- NOTE | 2024-03-18 | DI.RAD.S_ITS ---
PROCEDURE: XR ANKLE RT MIN 3V INDICATIONS: RIGHT ANKLE ORIF TECHNIQUE: 3 views of the ankle were acquired. COMPARISON: [facility], CT, CT LE RT WO CON, 03/16/2024, 19:06. [facility], CR, XR ANKLE RT 2V, 03/16/2024, 18:33. FINDINGS: Bones: Intraoperative images demonstrate distal tibia as well as fibular fixation. There is relatively good anatomic alignment and hardware appears intact. Fibular as well medial malleolar fractures are present Soft tissues: No tibiotalar joint effusion. Achilles tendon appears normal. IMPRESSION: Intraoperative distal tibia and fibular fixation as above. Dictated by: Steffi Golden M.D. on 03/18/2024 at 20:29 Approved by: Steffi Golden M.D. on 03/18/2024 at 20:30
[2024-03-18] MEDS: HYDROMORPHONE 0.5 MG INJ IV ×5 (01:07→21:12)
[2024-03-18] MEDS: CEFAZOLIN 2 GM/100 ML PREMIX 100 ML IV ×3 (02:44→16:58)
[2024-03-18] MEDS: HYDROCODONE/ACET 5/325 TABLET 2 TAB PO ×2 (03:05→09:25)
[2024-03-18] MEDS: SODIUM CHLORIDE 0.9% FLUSH 10 ML IV ×2 (07:42→21:35)
[2024-03-18] MEDS: SODIUM CHLORIDE 0.9% 1,000 ML 125 ML IV ×2 (10:05→21:10)
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
[2024-03-18] MEDS: LACTATED RINGERS 1,000 ML 42 ML IV ×3 (15:25→19:40)
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
--- NOTE | 2024-03-18 15:37 | SUR.HOLD ---
heart tones 151
--- NOTE | 2024-03-18 17:28 | SUR.OPER ---
Supine on padded OR bed, head on pillow, arms secured on padded arm boards at <90 degrees abduction, legs uncrossed, safety belt at thigh, tape over blanket over non-operative leg. Bump placed under right hip.
[2024-03-18] MEDS: BUPIVACAINE 0.5% W/ EPI (PF) 30 ML VIAL INJ (17:38)
[2024-03-18] MEDS: fentaNYL 100 MCG/2 ML INJ IV ×2 (20:05→20:17)
[2024-03-18] MEDS: MORPHINE 10 MG/ML INJ IV ×4 (20:06→20:36)
[2024-03-18] MEDS: OXYCODONE IR 5 MG TABLET PO ×2 (20:07→20:31)
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
[2024-03-18] MEDS: ACETAMINOPHEN 325 MG TABLET 650 MG PO (20:31)
--- NOTE | 2024-03-18 20:45 | SUR.PHASEI ---
heart tones 140 BPM.
--- NOTE | 2024-03-18 21:33 | PM.PN.1 ---
Subjective Subjective Interval history: Patient seen postoperatively. Complaining of significant pain. Her positive urine drug screen for opiates on arrival indicates she is likely not opiate naive and this may explain her challenges with pain control that she has been having. She has sensation intact to light touch in her exposed toes distal to the splint site. The splint is clean and dry. All toes are warm and well perfused. Nonweightbearing right lower extremity Lovenox DVT prophylaxis Discharge home with cefadroxil 500 mg twice per day Follow up in 2 weeks for wound check and x-rays with transition to a walker boot but will likely leave sutures in place at that time Exam Vital Signs (past 8 hours): - 03/18/24 15:00 03/18/24 15:20 03/18/24 19:59 Temperature 99.4 F 98.5 F Pulse Rate 24 L 125 H Respiratory Rate 111 H 18 Blood Pressure 144/82 H 135/91 H Pulse Oximetry 95 95 96 Oxygen Delivery Method Room Air Room Air Room Air Oxygen Flow Rate 0 03/18/24 20:04 03/18/24 20:09 03/18/24 20:19 Temperature Pulse Rate 124 H 116 H 113 H Respiratory Rate 17 96 H 17 Blood Pressure 147/109 H 139/73 137/88 Pulse Oximetry 97 3 L 97 Oxygen Delivery Method Nasal Cannula Nasal Cannula Nasal Cannula Oxygen Flow Rate 3 3 03/18/24 20:24 03/18/24 20:29 03/18/24 20:34 Temperature Pulse Rate 109 H 111 H 110 H Respiratory Rate 18 16 13 Blood Pressure 128/80 123/79 126/93 H Pulse Oximetry 97 98 99 Oxygen Delivery Method Nasal Cannula Nasal Cannula Nasal Cannula Oxygen Flow Rate 3 3 3 03/18/24 20:39 03/18/24 21:00 Temperature 98.5 F 98.7 F Pulse Rate 102 H 105 H Respiratory Rate 17 20 Blood Pressure 127/71 154/88 H Pulse Oximetry 97 97 Oxygen Delivery Method Nasal Cannula Oxygen Flow Rate 3 0 Fraction of Inspired Oxygen 28 SaO2/FiO2 Ratio 342 Oxygen Delivery Method Nasal Cannula Oxygen Flow Rate 0 Objective Labs 03/17/24 19:01 03/17/24 19:01 [facility] Medical History Seasonal allergies Anemia MILD PERSISTENT ASTHMA, UNCOMPLICATED Social History household members: children Smoking Status: Current every day smoker alcohol intake: former
[2024-03-18] MEDS: ENOXAPARIN 30 MG/0.3 ML SYRINGE SUBCUT (21:34)
[2024-03-18] MEDS: DOCUSATE 100 MG CAPSULE PO (21:35)
[2024-03-18] MEDS: SENNOSIDES 8.6 MG TABLET 17.2 MG PO (21:35)
[2024-03-18] MEDS: OXYCODONE IR 10 MG TABLET PO (22:29)
[2024-03-19] VITALS (9 sets, daily range): BP systolic 96–128; BP diastolic 54–85; PULSE 109–117; RESP 18–20; TEMP 36.3–36.7; O2SAT 94–96
[2024-03-19] MEDS: OXYCODONE IR 10 MG TABLET PO ×5 (01:57→20:26)
[2024-03-19] MEDS: CEFAZOLIN 2 GM/100 ML PREMIX 100 ML IV ×3 (02:30→16:56)
[2024-03-19] MEDS: HYDROMORPHONE 0.5 MG INJ IV ×3 (03:51→08:47)
[2024-03-19 06:41] LABS: Hematocrit 24.4 % (36-46); Hemoglobin 8.3 g/dL (12.0-16.0); Mean Corpuscular Hemoglobin 31.6 PG (26-34); Platelet Count 190 X10^3/uL (150-400); Red Blood Cell Count 2.62 X10^6/uL (4.0-5.2); Red Cell Distribution Width 13.2 % (11.6-14.8)
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
[2024-03-19] MEDS: polyethylene glycoL 3350 17 GM POWD.PACK PO (08:46)
[2024-03-19] MEDS: DOCUSATE 100 MG CAPSULE PO ×2 (08:46→20:27)
[2024-03-19] MEDS: ENOXAPARIN 30 MG/0.3 ML SYRINGE SUBCUT ×2 (08:47→20:25)
[2024-03-19] MEDS: SODIUM CHLORIDE 0.9% FLUSH 10 ML IV ×4 (08:48→20:28)
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
[2024-03-19] MEDS: ACETAMINOPHEN 325 MG TABLET 650 MG PO ×2 (10:00→15:45)
--- NOTE | 2024-03-19 10:24 | CM.DPC ---
DCP Cont. Reviewed EMR and team rounds for status updates. Met with pt at bedside, she was found to be anxious, stating again that she was in pain. RN shared that pt continues to request high levels of opioids, is tearful most of the time, but this seems to be more pain behaviors, and some histrionic lability in coping. [employer] asked about probable d/c back to the nursing home tomorrow, at which point she yelled, No! I never want to leave here! [employer]OR offered supportive counseling for coping, however reiterated that she will need to d/c back to the nursing home once medically cleared for discharge. Her mother will drive her. [employer]PER[employer]OR will plan to meet with her again tomorrow am to assist with her d/c transition.
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
[2024-03-19] MEDS: SENNOSIDES 8.6 MG TABLET 17.2 MG PO (20:25)
[2024-03-20] MEDS: CEFAZOLIN 2 GM/100 ML PREMIX 100 ML IV (01:39)
[2024-03-20] MEDS: OXYCODONE IR 10 MG TABLET PO ×4 (01:52→15:33)
[2024-03-20] MEDS: DOCUSATE 100 MG CAPSULE PO ×2 (08:39→21:15)
[2024-03-20] MEDS: polyethylene glycoL 3350 17 GM POWD.PACK PO (08:39)
[2024-03-20] MEDS: ENOXAPARIN 30 MG/0.3 ML SYRINGE SUBCUT ×2 (08:41→21:19)
[2024-03-20] MEDS: SODIUM CHLORIDE 0.9% FLUSH 10 ML IV ×2 (08:42→21:17)
--- NOTE | 2024-03-20 09:04 | CM.DPC ---
DCP Cont. Reviewed EMR and team rounds for status updates. Met with Dr. Rodriguez, plan is for pt to d/c home today to her grandmother's house for postoperative recovery and care. She will transport pt later this morning, no further d/c needs identified at this time.
[2024-03-20 10:31] VITALS: BP 108/61; PULSE 106; RESP 18; TEMP 36.1; O2SAT 95
[2024-03-20] MEDS: ACETAMINOPHEN 325 MG TABLET 650 MG PO ×2 (11:09→21:15)
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
--- NOTE | 2024-03-20 15:56 | PC.NURSE ---
Pt is dressed and ready for discharge home with family. IV has been removed. Went over d/c instructions with Pt and Family -discussed d/c meds, time of last dose, reviewed stroke education, reminded Pt not to drive until cleared by her PCP, Ortho, and not taking narcotics. Encouraged Pt to drink plenty of fluids to prevent constipation or dehydration. Pt and family denied further questions and is ready to be taken out via w/c by PT/HONEY PRODUCER with all belongings.
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
--- NOTE | 2024-03-20 16:12 | PC.NURSE ---
Addendum entered by Shelby Baker R.N. 03/20/24 16:45: Pt unable to transfer from w/c to vehicle after several attempts. Pt back to room and we are now working on a safe transport home plan. Pt agrees to call for assistance as needed, call light in reach Addendum entered by Shelby Baker R.N. 03/20/24 16:44: Pt back to room via w/c by PT. Pt Original Note: Pt out via w/c by PT and Alicia MONTOYA to POV with family and all belongings.
--- NOTE | 2024-03-20 17:08 | PC.NURSE ---
PT Superintendent Measurement, myself and an additional RN attempted to assist patient into private vehicle. Patient is non-weight bearing on the LLE, with fractured ribs and reported bilateral shoulder pain. Efforts to use a FWW, Gaitbelt and 3 person assist, unable to safely get the patient into the waiting minivan. The position and height of the seat would require full patient lift with minimal space to maneuver. Patient was calling out and tearful reporting the pain to her ribs and back was intolerable. She was unsteady with the use of the FWW and leaning without appropriate support of bilateral upper extremities. Care team was unable to devise a manner to assist patient further. Patient was assisted via wheelchair back to the room. I requested the assistance of the ED GLASSWORKER for possible transportation options. The patient adamantly denies having any funds available for transport. She also does not access to a wheelchair. [facility] reports that [facility] would cost approximately $250 they are closed for the day. There is an medicaid relief fund that may be able to assist in transportation. They are also closed for the day. [facility] has agreed to assist the patient in completing the necessary paperwork and fax it over so that it might be processed in the a.m. Primary RN updated to current efforts. She will notify provider of inability to arrange discharge.
--- NOTE | 2024-03-20 17:24 | CM.DPC ---
Addendum entered by LONNIE Molina 03/20/24 19:26: CLINICAL INFORMATICS EDUCATOR entered room, introduced self and role. Present in the room was pt's friend, Blue and his service animal. Pt was found to be somnolent but cooperative during meeting. CLINICAL INFORMATICS EDUCATOR discussed transport with [facility] - Medicaid Transport Services for Higher Mode of Transportation. Pt verbalized understanding of Medicaid transportation but has never used it in the past. Pt provided consent for this CLINICAL INFORMATICS EDUCATOR to send Documentation of Medical Need for Taxi or Cabulance to [facility] with hopes that it can be processed in the morning. Pt appreciated referral to transport resource. CLINICAL INFORMATICS EDUCATOR faxed form to [facility] (fax: [phone]) and left form in CM office for reference. MANOJ Ragsdale Original Note: DCP Note: Per composing room machinist apprentice, pt was not able to enter personal vehicle due to non-weightbearing in left lower extremity even with maximal assist. CLINICAL INFORMATICS EDUCATOR consulted to assist with brainstorming for transportation as pt was already discharged. Per Inpatient Director, pt and family do not have resources for BLS Transport or cabulance. CLINICAL INFORMATICS EDUCATOR called [facility] (ph#[phone]) to inquire about pt qualifying for medical transport. Due to after business hours, this CLINICAL INFORMATICS EDUCATOR left a voice message asking a returned call to either ED CLINICAL INFORMATICS EDUCATOR line or Care Management line for tomorrow. CLINICAL INFORMATICS EDUCATOR called community ice skating teacher, Maximo Alan (ph# [phone]), to inquire about resources in the community for non-emergency transport. Community Hazardous Material Technician suggested [facility] Non Emergency Medical Transport. CLINICAL INFORMATICS EDUCATOR called [facility] (ph#[phone]), inquired about a one-way wheelchair transport to [place]. [facility] reported there is no available cross country truck driver for tonight, 03/20, and the soonest transport is for 03/21 at 5:00pm. [facility] offered estimated cost of one-way transport to be $250 ($50 transport fee, $15 fee for hospital discharges, $4/mile). CLINICAL INFORMATICS EDUCATOR discussed this with Inpatient Director, discussed pt might have to stay one more night due to no safe transport at discharge. CLINICAL INFORMATICS EDUCATOR will meet with pt at bedside to obtain consent to send Documentation of Medical Need for Taxi or Cabulance to [facility]. MANOJ Ragsdale
[2024-03-20] MEDS: SENNOSIDES 8.6 MG TABLET 17.2 MG PO (21:15)
[2024-03-20] MEDS: OXYCODONE IR 5 MG TABLET PO (21:16)
[2024-03-20 21:22] VITALS: BP 130/76; PULSE 115; RESP 18; TEMP 36.2; O2SAT 97
[2024-03-20 21:30] VITALS: O2SAT 95
[2024-03-21] MEDS: ACETAMINOPHEN 325 MG TABLET 650 MG PO ×2 (03:12→12:26)
[2024-03-21] MEDS: OXYCODONE IR 10 MG TABLET PO ×3 (03:12→12:26)
[2024-03-21 07:00] VITALS: O2SAT 95
--- NOTE | 2024-03-21 07:20 | DIET.CONS2 ---
Dietary Inpatient Consultation Note Admission Date: 03/16/2024 19:44 28y pt screened for LOS day 5. POs adequate. Pt LOS due to d/c delays. No nutrition needs identified. Nutrition Percent Meal Consumed 100% 03/20/24 13:43 Percent Meal Consumed 75% 03/19/24 13:17 Electronically Signed by: Disha Hinds 03/21/24 07:20 Clinical Dietitian [address] [address]
[2024-03-21] MEDS: DOCUSATE 100 MG CAPSULE PO (09:10)
[2024-03-21] MEDS: polyethylene glycoL 3350 17 GM POWD.PACK PO (09:10)
[2024-03-21] MEDS: ENOXAPARIN 30 MG/0.3 ML SYRINGE SUBCUT (09:13)
--- NOTE | 2024-03-21 10:19 | CM.DPC ---
DCP-Update CLARIFIER OPERATOR is working on getting Medicaid Transportation to provide BLS transport for pt to get home today. Pending response from Medicaid Transportation to authorize.
== END 2024-03-21 14:30 | disposition home or self-care (01) | DRG 818 ==
LOC: ED 19:37 → AC 19:45
PROVIDERS: Emergency Medicine; Orthopaedic Surgery Adult Reconstructive Orthopaedic Surgery; Surgery; Admitting Provider Surgery; Emergency Provider Emergency Medicine; Referring Provider Emergency Medicine; Visit Provider Surgery
PROC: 0SSF04Z Reposition Right Ankle Joint with Internal Fixation Device, Open Approach (ICD-10-PCS; principal; 2024-03-18 16:00)
DX: O9A.212 Injury, poisoning and certain other consequences of external causes complicating pregnancy, second trimester (principal); S22.41XA Multiple fractures of ribs, right side, initial encounter for closed fracture; S82.841B Displaced bimalleolar fracture of right lower leg, initial encounter for open fracture type I or II; O26.892 Other specified pregnancy related conditions, second trimester; J45.909 Unspecified asthma, uncomplicated; O99.332 Smoking (tobacco) complicating pregnancy, second trimester; F17.200 Nicotine dependence, unspecified, uncomplicated; O99.322 Drug use complicating pregnancy, second trimester; F11.90 Opioid use, unspecified, uncomplicated; V43.52XA Car driver injured in collision with other type car in traffic accident, initial encounter; Y92.410 Unspecified street and highway as the place of occurrence of the external cause; Z23 Encounter for immunization; Z3A.18 18 weeks gestation of pregnancy
CPT/HCPCS: 27810; 36415; 70450; 71045; 71275; 72125; 72170; 73610; 73700; 74177; 76000; 80048; 80053; 80305; 80320; 82962; 83605; 83690; 85025; 85027; 85610; 85730; 86850; 86900; 86901; 90471; 94640; 94760; 96365; 96375; 97162; 97530; 99152; 99285; 99291; C1776; 90715; G0390; J0690; J1170; J1650; J2060; J2250; J2270; J2405; J3010; J7613; Q9967

== ENCOUNTER → 2024-03-31 13:12 | Outpatient (CLI) | payer OTHER, SELFPAY ==
[2024-03-16 22:43] VITALS: BMI 44.6
--- NOTE | 2024-03-31 13:14 | DI.US.S_ITS ---
PROCEDURE: US PERIPH VENOUS LOW EXTREM RT INDICATIONS: Right lower extremity numbness, please evaluate for DVT RLE TECHNIQUE: Real-time imaging, as well as color and pulse Doppler interrogation, were performed of the lower extremity deep veins from the inguinal ligament to the popliteal fossa, with documentation of the visualized calf veins. COMPARISON: None. FINDINGS: The common femoral, femoral, popliteal, and the visualized calf veins are normally compressible, and free of intraluminal thrombus. (The calf veins are not seen, secondary to overlying casting material.) Color and pulse Doppler demonstrate normal phasic intraluminal flow. There is normal augmentation response to distal compression maneuver. IMPRESSION: No findings of lower extremity deep venous thrombosis. Note: Concordant preliminary findings given by the party plan sales agent upon the completion of the examination to Dr. Pena. Dictated by: Jayden Sethi M.D. on 03/31/2024 at 14:09 Approved by: Jayden Sethi M.D. on 03/31/2024 at 14:10
== END ==
LOC: US 13:14
PROVIDERS: Referring Provider Orthopaedic Surgery Adult Reconstructive Orthopaedic Surgery; Visit Provider Orthopaedic Surgery Adult Reconstructive Orthopaedic Surgery
DX: Z98.890 Other specified postprocedural states (principal)
CPT/HCPCS: 93971